=== PATIENT | male | born 1985 | race Caucasian/White ===

== ENCOUNTER 2023-03-06 23:24 | Emergency (ER) | payer OTHER ==
[~2023-03-06] VITALS: Ht 182.9 cm; Wt 111.6 kg
[2023-03-06 23:54] VITALS: BP_SYST 137; PULSE 105; RESP 19; TEMP 105; O2SAT 97
[2023-03-07] MEDS ORDERED: LIDOCAINE/EPI 1% 1:100000 20 ML VIAL INJ ONE (00:15)
[2023-03-07 00:27] LABS: BASOPHILS % (AUTO) 0.3 % (0.0-2.0); EOSINOPHILS # (AUTO) 0.2 K/uL (0.0-0.4); EOSINOPHILS % (AUTO) 1.8 % (0.0-4.0); HEMATOCRIT 48.8 % (36-54); HEMOGLOBIN 16.4 g/dL (14.0-18.0); LYMPHOCYTES # (AUTO) 2.1 K/uL (1.0-5.5); LYMPHOCYTES % (AUTO) 21.5 % (20.5-51.5); MEAN CORPUSCULAR HEMOGLOBIN 30 pg (27-31); MEAN CORPUSCULAR HGB CONC 34 % (32-36); MEAN CORPUSCULAR VOLUME 88 fL (79.0-98.0); MONOCYTES % (AUTO) 10.5 % (1.7-9.3); NEUTROPHILS # (AUTO) 6.3 K/uL (1.8-7.7); NEUTROPHILS % (AUTO) 65.9 % (40.0-70.0); PLATELET COUNT (AUTO) 327 K/uL (130-430); RED BLOOD CELL COUNT(AUTO) 5.54 MIL/uL (4.2-6.2); RED CELL DISTRIBUTION WIDTH 13.5 % (9.0-15.0); WHITE BLOOD COUNT (AUTO) 9.6 K/uL (4.8-10.8)
[2023-03-07 00:42] LABS: CALCIUM 8.7 mg/dL (8.4-11.0); CREATININE 1.21 mg/dL (0.55-1.30); POTASSIUM 3.9 mmol/L (3.5-5.1)
[2023-03-07 00:46] LABS: ALBUMIN 3.7 g/dL (3.4-4.8); TOTAL BILIRUBIN 0.6 mg/dL (0.0-1.0); TOTAL PROTEIN, SERUM 7.7 g/dL (6.4-8.3)
[2023-03-07] MEDS ORDERED: DIPHTH,PERTUSS(ACELL),TET VAC 0.5 ML VIAL (Tdap) I.M. ONE ×2 (02:50)
[2023-03-07] MEDS ORDERED: IBUP-2018 PO (03:19)
[2023-03-07] MEDS ORDERED: HYDR-3927 PO (03:19)
[2023-03-07] MEDS ORDERED: SULF1TAB48 PO (03:21)
[2023-03-07 03:35] VITALS: BP_SYST 144; PULSE 94; RESP 20; TEMP 97.7; O2SAT 96
[2023-03-07] MEDS ORDERED: AMMONIA 1 EA TOWELETTE INH ONE (11:18)
== END 2023-03-07 03:35 | disposition home or self-care (01) ==
LOC: SED 23:24
DX: S31.114A Laceration without foreign body of abdominal wall, left lower quadrant without penetration into peritoneal cavity, initial encounter (principal); S31.634A Puncture wound without foreign body of abdominal wall, left lower quadrant with penetration into peritoneal cavity, initial encounter; Z79.899 Other long term (current) drug therapy; W29.8XXA Contact with other powered hand tools and household machinery, initial encounter; Y93.89 Activity, other specified; Y92.89 Other specified places as the place of occurrence of the external cause; Y99.8 Other external cause status
CPT/HCPCS: 99291; 12035; 74177; 80053; 83690; 85025; 36415; 76376; 90715; 90471; Q9967; J7030